=== PATIENT | male | born 1960 | race Caucasian/White ===

== ENCOUNTER → 2024-05-16 08:31 | Outpatient (REF) | payer OTHER, SELFPAY | LOC: DHCBC/DCA 08:31 | PROVIDERS: ATTENDING PHYSICIAN Internal Medicine Cardiovascular Disease; FAMILY PHYSICIAN Family Medicine | DX: R06.09 Other forms of dyspnea (principal); R94.31 Abnormal electrocardiogram [ECG] [EKG] | CPT/HCPCS: 78452; 93017; A9500; J2785 ==

== ENCOUNTER → 2024-05-17 12:40 | Outpatient (REF) | payer OTHER, SELFPAY | LOC: HWRCS 12:40 | PROVIDERS: ATTENDING PHYSICIAN Internal Medicine Cardiovascular Disease; FAMILY PHYSICIAN Family Medicine | DX: R06.09 Other forms of dyspnea (principal) | CPT/HCPCS: 93306 ==

== ENCOUNTER 2024-08-08 07:30 | Day surgery (SDC) | payer OTHER, SELFPAY ==
--- NOTE | 2024-08-07 17:04 | ITS.CL.CATH ---
[employer] Professional - Catheterization
Cardiac Catheterization
Procedure Report:
RIGHT HEART CATHETERIZATION
Date of Procedure: August 08, 2024
Referring: Mally Garay PA-C
INDICATION: Assess invasive hemodynamics in the setting of RV dilatation and hypokinesis with pulmonary hypertension
Hemodynamics (mmHg):
RA (m) : 17
RV (s/d,m) : 87/12, 23
PA (s/d, m) : 88/43, 59
PCWP (m) : 14
PA saturation: 50.3% on room air
AO saturation: 94.0% on room air
Cardiac Output : 2.04 L/min
Cardiac Index : 1.04 L/min/m-2
Systemic vascular resistance: 3373 dsc^(-5)
Pulmonary vascular resistance: 19.7 harrison unit
Heart rate: 80 bpm
RADIATION SUMMARY: Fluoro Time (min): 1, Dose (mGy): 6.6, DAP (Gy.cm2) : 1.07
CONCLUSION:
1. Severe pulmonary hypertension with significantly elevated right-sided filling pressures and near normal left-sided filling pressures with significantly elevated systemic and pulmonary vascular resistance.
--Patient will be set up to see pulmonary artery bruit hypertension specialist from cardiology as well as pulmonology standpoint.
Discussed all of the above with outpatient power washer, Jaya Bedolla
Copy to: Mally Garay PA-C, Jaya Bedolla
Marycruz More MD, [facility], [facility]
[2024-08-08 07:40] VITALS: BMI 29.0
[2024-08-08 07:52] VITALS: BP 128/74
[2024-08-08 08:11] VITALS: BP 128/74
[2024-08-08 08:18] LABS: Hematocrit 49.1 % (39.0-52.0); Hemoglobin 17.2 g/dL (13.0-18.0); Mean Corpuscular Hgb 32.6 pg (27.0-31.0); Mean Corpuscular Volume 93.2 fL (80.0-94.0); Mean Platelet Volume 10.3 fL (7.4-10.4); Platelet Count 195 10^3/uL (130-400); Red Blood Cell Count 5.27 10^6/uL (4.70-6.10); Red Cell Dist. Width 13.6 % (11.5-14.5)
[2024-08-08 08:24] LABS: ALT (SGPT) 23 U/L (0-50); AST (SGOT) 26 U/L (17-59); Albumin 4.5 g/dl (3.5-5.0); Alkaline Phosphatase 101 U/L (38-126); Blood Urea Nitrogen 21 mg/dl (9-20); Calcium 9.5 mg/dl (8.4-10.2); Carbon Dioxide 20 mmol/L (22-30); Chloride 107 mmol/L (98-107); Estimated Creatinine Clearance 63 ml/min; Glucose 96 mg/dl (70-99); Potassium 4.4 mmol/L (3.5-5.1); Sodium 142 mmol/L (135-145); Total Bilirubin 0.9 mg/dl (0.2-1.3); eGFR > 60.00
[2024-08-08 09:14] VITALS: BP 133/88
[2024-08-08 09:44] LABS: B.E. -2.8 mmol/L; HCO3 19.5 mmol/L (21-28); O2 Saturation % 98.8 % (94-98); PCO2 28 mmHg (35-48); PO2 91 mmHg (83-108); pH 7.45 (7.35-7.45)
[2024-08-08 10:02] VITALS: BP 133/88
[2024-08-08 10:14] LABS: Erythrocyte Sed Rate 7 mm/hour (0-20)
[2024-08-08 15:39] LABS: Rheumatoid Agglutinin Less Than 10 IU (<10 IU)
[2024-08-10 02:51] LABS: ANA, IgG Reflex to HEp-2 None Detected (None Detected)
== END 2024-08-08 11:09 | disposition home or self-care (01) ==
LOC: CATH 07:30
PROVIDERS: Nurse Practitioner Adult Health; ATTENDING PHYSICIAN Internal Medicine Interventional Cardiology; FAMILY PHYSICIAN Family Medicine
DX: I27.20 Pulmonary hypertension, unspecified (principal); I10 Essential (primary) hypertension; R09.89 Other specified symptoms and signs involving the circulatory and respiratory systems
CPT/HCPCS: 36600; 80053; 82805; 85027; 85652; 86038; 86430; 93451; 93654; C1894

== ENCOUNTER → 2024-08-16 13:00 | Outpatient (REF) | payer OTHER, SELFPAY | LOC: RAD 13:00 | PROVIDERS: ATTENDING PHYSICIAN Physician Assistant Medical; FAMILY PHYSICIAN Family Medicine | DX: I27.20 Pulmonary hypertension, unspecified (principal); R06.09 Other forms of dyspnea | CPT/HCPCS: 71046 ==

== ENCOUNTER → 2024-08-22 15:19 | Outpatient (REF) | payer OTHER, SELFPAY | LOC: RAD 15:19 | PROVIDERS: ATTENDING PHYSICIAN Internal Medicine Cardiovascular Disease; FAMILY PHYSICIAN Family Medicine | DX: R91.8 Other nonspecific abnormal finding of lung field (principal) | CPT/HCPCS: 71250 ==

== ENCOUNTER → 2024-12-04 13:45 | Outpatient (REF) | payer OTHER, SELFPAY | LOC: RCS 13:45 | PROVIDERS: ATTENDING PHYSICIAN Internal Medicine Cardiovascular Disease; FAMILY PHYSICIAN Family Medicine | DX: I27.20 Pulmonary hypertension, unspecified (principal); R06.09 Other forms of dyspnea; I51.9 Heart disease, unspecified | CPT/HCPCS: 93306 ==

== ENCOUNTER → 2024-12-06 13:40 | Outpatient (REF) | payer OTHER, SELFPAY | LOC: RAD 13:40 | PROVIDERS: ATTENDING PHYSICIAN Internal Medicine Cardiovascular Disease; FAMILY PHYSICIAN Family Medicine | DX: I27.20 Pulmonary hypertension, unspecified (principal); I65.23 Occlusion and stenosis of bilateral carotid arteries | CPT/HCPCS: 93880 ==

== ENCOUNTER → 2025-04-17 12:57 | Outpatient (REF) | payer OTHER, SELFPAY | LOC: HWRAD 12:57 | PROVIDERS: ATTENDING PHYSICIAN Internal Medicine Critical Care Medicine; FAMILY PHYSICIAN Family Medicine | DX: J43.2 Centrilobular emphysema (principal); R91.8 Other nonspecific abnormal finding of lung field | CPT/HCPCS: 71250 ==

== ENCOUNTER → 2025-07-04 10:03 | Outpatient (REF) | payer OTHER, SELFPAY | LOC: HWRCS 10:03 | PROVIDERS: ATTENDING PHYSICIAN Internal Medicine Cardiovascular Disease; FAMILY PHYSICIAN Family Medicine | DX: I27.21 Secondary pulmonary arterial hypertension (principal) | CPT/HCPCS: 93306 ==

== ENCOUNTER 2025-10-09 11:26 | Day surgery (SDC) | payer OTHER, SELFPAY ==
[2025-10-09 11:39] VITALS: BMI 28.5
[2025-10-09 12:04] VITALS: BP 112/67
[2025-10-09 12:09] LABS: Hematocrit 48.4 % (39.0-52.0); Hemoglobin 16.7 g/dL (13.0-18.0); Mean Corp Hgb Conc. 34.5 g/dL (33.0-37.0); Mean Corpuscular Volume 92.7 fL (80.0-94.0); Platelet Count 185 10^3/uL (130-400); Red Cell Dist. Width 13.7 % (11.5-14.5)
[2025-10-09 12:25] LABS: ALT (SGPT) 13 U/L (0-50); AST (SGOT) 18 U/L (17-59); Albumin 4.2 g/dl (3.5-5.0); Alkaline Phosphatase 100 U/L (38-126); Blood Urea Nitrogen 14 mg/dl (9-20); Calcium 8.9 mg/dl (8.4-10.2); Carbon Dioxide 24 mmol/L (22-30); Chloride 109 mmol/L (98-107); Estimated Creatinine Clearance 85 ml/min; Glucose 89 mg/dl (70-99); Potassium 4.1 mmol/L (3.5-5.1); Sodium 140 mmol/L (135-145); Total Protein 7.0 g/dl (6.3-8.2); eGFR > 60.00
[2025-10-09 13:49] VITALS: BP 129/76
--- NOTE | 2025-10-09 14:01 | ITS.CL.CATH ---
[employer] - Catheterization
Cardiac Catheterization
Procedure Report:
RIGHT HEART CATHETERIZATION
Date of Procedure: October 09, 2025
Referring: Dr. Carmencita Fish
INDICATION: Pulmonary hypertension
Hemodynamics (mmHg):
RA (m) : 11
RV (s/d,m) : 93/8, 15
PA (s/d, m) : 92/34, 56
PCWP (m) : 12
Cardiac Output : 3.9 L/min and Cardiac Index : 2.0 L/min/m-2
Systemic vascular resistance: 22 Wood units or 1759 [id number](-5)
Pulmonary vascular resistance: 11.3 Wood units or 900 [id number](-5)
RADIATION SUMMARY: Fluoro Time (min): 1.9, Dose (mGy): 13.1, DAP (Gy.cm2) : 1.9
CONCLUSION:
1. Severe pulmonary hypertension with significantly elevated right ventricular filling pressures, mean PA pressure and PVR. Normal left ventricular filling pressure
Copy to: Dr. Carmencita Fish
[2025-10-09 14:04] VITALS: BP 146/76
[2025-10-09 14:19] VITALS: BP 116/80
[2025-10-09 14:34] VITALS: BP 119/73
[2025-10-09 14:49] VITALS: BP 129/72
== END 2025-10-09 15:00 | disposition home or self-care (01) ==
LOC: CATH 11:26
PROVIDERS: ATTENDING PHYSICIAN Internal Medicine Interventional Cardiology; FAMILY PHYSICIAN Family Medicine; OTHER PHYSICIAN Internal Medicine Cardiovascular Disease
DX: I27.20 Pulmonary hypertension, unspecified (principal); Z79.899 Other long term (current) drug therapy
CPT/HCPCS: 80053; 85027; 93451; C1769; C1894